=== PATIENT | female | born 1975 | race African-American/Black ===

== ENCOUNTER 2021-04-15 10:53 | Emergency (ER) | payer OTHER ==
[~2021-04-15] VITALS: Ht 152.4 cm; Wt 71.7 kg
[2021-04-15] MEDS ORDERED: IBUPROFEN 600 MG TABLET PO ONE (13:00)
[2021-04-15] MEDS ORDERED: CYCLOBENZAPRINE HCL 10 MG TABLET PO SCH (13:00)
[2021-04-15 16:25] VITALS: BP 151/77
[2021-04-15] MEDS ORDERED: CYCL5TAB PO (16:32)
[2021-04-15] MEDS ORDERED: IBUP-2088 PO (16:32)
== END 2021-04-15 16:43 | disposition home or self-care (01) ==
LOC: EDH 10:53
DX: M54.2 Cervicalgia (principal); Z88.8 Allergy status to other drugs, medicaments and biological substances; V47.5XXA Car driver injured in collision with fixed or stationary object in traffic accident, initial encounter; Y93.89 Activity, other specified; Y92.410 Unspecified street and highway as the place of occurrence of the external cause; Y99.8 Other external cause status
CPT/HCPCS: 72040; 72125; 81025